=== PATIENT | male | born 1970 | race Caucasian/White ===

== ENCOUNTER 2024-04-29 21:44 | Emergency (ER) | payer BC, SELFPAY ==
[2024-04-29 22:19] VITALS: BP 155/78; PULSE 83; RESP 17; TEMP 36.8; O2SAT 97; BMI 33.2
--- NOTE | 2024-04-29 22:26 | PD.EDWOUND ---
ED Wound/Laceration-RME/HPI General Chief Complaint: Wound/Laceration Stated Complaint: lac to abd Time Seen by Provider: 04/29/24 22:26 Source: patient Arrival date/time: 04/29/24 21:44 53-year-old male presents emergency department complaining of small laceration to right lower quadrant of the abdomen after laying on bed and forgetting there was his knife on the bed which resulted in small superficial laceration. Patient unsure if he is up-to-date with tetanus vaccine. Mode of arrival: ambulatory Limitations: no limitations Related Data Previous Rx's ?Medication ?Instructions ?Recorded cephalexin 500 mg capsule 500 mg PO BID 5 days #10 caps 04/29/24 Allergies Allergy/AdvReac Type Severity Reaction Status Date / Time No Known Allergies Allergy Unverified 01/21/23 09:13 Review of Systems Review of Systems Systems Reviewed: All systems reviewed, normal except as documented Constitutional Constitutional: Reports system reviewed and no additional complaints, except as documented, Denies body ache(s), Denies chills and Denies fever(s) Eyes Eyes: Reports system reviewed and no additional complaints, except as documented and Denies change in vision ENT Ears, Nose, Mouth, and Throat: Reports system reviewed and no additional complaints, except as documented, Denies disequilibrium, Denies dizziness, Denies sore throat and Denies vertigo Cardiovascular Cardiovascular: Reports system reviewed and no additional complaints, except as documented, Denies chest pain and Denies dyspnea Respiratory Respiratory: Reports system reviewed and no additional complaints, except as documented, Denies chest congestion, Denies cough and Denies dyspnea Gastrointestinal Gastrointestinal: Reports system reviewed and no additional complaints, except as documented, Denies abdominal pain, Denies nausea and Denies vomiting Musculoskeletal Musculoskeletal: Reports system reviewed and no additional complaints, except as documented, Denies abnormal gait and Denies arthralgias Integumentary/Breasts Skin/Breast: Reports system reviewed and no additional complaints, except as documented, Denies erythema, Denies rash and Reports wounds Neurologic Neurologic: Reports system reviewed and no additional complaints, except as documented, Denies abnormal gait, Denies disequilibrium, Denies dizziness and Denies vertigo Past Medical History Social History SMOKING STATUS: Never smoker ED Exam General Limitations: Present no limitations General appearance: Present alert and in no apparent distress Head Head exam: Present atraumatic Eye Eye exam: Present normal appearance, PERRL and EOMI ENT ENT exam: Present normal exam, normal oropharynx and mucous membranes moist Neck Neck exam: Present normal inspection, full ROM and trachea midline Chest Chest inspection: Present normal inspection and symmetric chest wall rise Respiratory Respiratory exam: Present normal lung sounds bilaterally Cardiovascular Cardiovascular exam: Present regular rate, normal rhythm and normal heart sounds Abdominal Exam Abdominal exam: Present soft and normal bowel sounds Extremities Exam Extremities exam: Present normal inspection and full ROM Back Exam Back exam: Present normal inspection and full ROM Neurological Exam Neurological exam: Present alert, oriented X3 and CN II-XII intact Psychiatric Psychiatric exam: Present normal affect and normal mood Skin Skin exam: Present warm and dry Expanded Skin Exam Type of lesion: Present laceration Distribution: Present abdomen Description: Present size (1 cm) Body image: 1. Superficial 1 cm laceration Course Quality Measures none Orders Category Date Time Status Set Up Suture Tray STAT Care 04/29/24 22:26 Completed Wound Care [Wound Care] NOW Care 04/29/24 22:26 Completed Lidocaine 1% 20 ml [Xylocaine 1% 20 ML] Med 04/29/24 22:26 Discontinued 20 ml INFL X1 ONE Tet,Diphth,Pertuss(Acell)-Tdap [Boostrix Vacc] Med 04/29/24 22:26 Discontinued 0.5 ml IMI .ONCE ONE Vital Signs Vital signs: Vital Signs Temperature 98.2 F 04/29/24 22:19 Pulse Rate 83 04/29/24 22:19 Respiratory Rate 17 04/29/24 22:19 Blood Pressure 155/78 H 04/29/24 22:19 Pulse Oximetry (%) 97 04/29/24 22:19 Oxygen Delivery Method Room Air 04/29/24 22:19 97% room air within normal limits Procedures -ED Laceration Laceration 1: Site: other (Right lower abdomen) Size (cm): 1 Description: linear Depth: simple, single layer Local Anesthetic: lidocaine 1% Amount of anesthesia used (mL): 0.5 Pre-repair: wound explored and irrigated extensively Skin layer closed with: nylon Size (cm): 5-0 Number of sutures: 2 Technique: simple, interrupted Wound / Laceration MDM Narrative MDM Narrative:: 53-year-old male presents emergency department complaining of small laceration to right lower quadrant of the abdomen after laying on bed and forgetting there was his knife on the bed which resulted in small superficial laceration. Patient unsure if he is up-to-date with tetanus vaccine. Laceration to right lower abdomen approximately 1 cm in size and superficial with scant amount of bleeding. Abdominal exam soft with no obvious underlying hematoma. Laceration irrigated with normal saline. Laceration approximated with 2 simple interrupted sutures using 5-0 Ethilon. 1% lidocaine was used as a local anesthetic. Patient tolerated well. Patient appears nontoxic and hemodynamically stable. Patient discharged home with short duration oral antibiotics for infection prophylaxis. Patient instructed to return to the emergency room or primary care provider's office in 7 days for suture removal. Instructed to return to emergency department for any worsening symptoms or as needed. Patient data External records reviewed:: None Clinical information provided by:: patient Social determinants that could affect healthcare access:: none Patient has the following chronic illnesses:: Not applicable How is presenting disease/condition affected by chronic disease/condition?: no chronic disease Evaluation data The following diagnostics were reviewed and interpreted by me:: other (specify) (Not applicable) Lab and/or radiology exams considered but not ordered:: Not applicable Interpretation Summary: Not applicable Medications / Prescriptions Medications or Prescriptions considered but not ordered:: Ordered Medication administrations:: Medication Administration History Discontinued Medications Diphtheria/Tetanus/Acell Pertussis (Diphth,Pertuss(Acell),Tet Vac 0.5 Ml Vial) 0.5 ml IMi .ONCE ONE Stop: 04/29/24 22:27 Last Admin: 04/29/24 23:01 Dose: 0.5 ml Documented By: Lidocaine HCl (Lidocaine Hcl 1% 20 Ml Vial) 20 ml INFL X1 ONE Stop: 04/29/24 22:27 Last Admin: 04/29/24 23:02 Dose: 20 ml Documented By: Given Consultations Consultation(s) initiated? (list below): No Diagnosis Wound Differential Diagnosis: laceration Most likely diagnosis given after review of the tests above:: Laceration Admission Indicated Admission indicated?: not indicated Admission Request Was there a request for admission?: No Disposition Plan Disposition Plan: Discharge Discharge Attestation Discharge Attestation: The patient and all family members were given an opportunity to ask questions and understood the discharge instructions. Discharge instructions specifically effects, indications for sooner follow up or return to the emergency department, and the expected course of current diagnosis. Patient condition: Stable Discharge Plan Plan Patient Disposition: HOME (Self Care) Disposition Comment: Stable Prescriptions/Referrals Prescriptions/Med Rec: New cephalexin 500 mg capsule 500 mg PO BID 5 Days Qty: 10 0RF Referrals: Anjel Aleman MD [Primary Care Provider] - In 1 week Problem List Clinical Impression: Laceration Patient/Caregiver Discharge Instructions Discharge Activity: activity as tolerated Additional Instructions: Take medication as prescribed. Return to emergency department or primary care provider's office in 7 days for suture removal. May wash laceration with warm water and soap. Keep clean and dry. Return to emergency department for any signs of infection or worsening symptoms. Print Language: Tongan Stand Alone Forms: [facility] Award Info., Work/School Release, Patient Portal Info Letter Vaccines Vaccines Given During Stay: Modesta KILGORE Attestation MD Attestation The patient was seen by the midlevel practitioner. I, the co-signing physician, was present during the entire ER visit. While I did not physically examine the patient, I was available for consultation as needed.
[2024-04-29] MEDS: DIPHTH,PERTUSS(ACELL),TET VAC 0.5 ML VIAL IMi (23:01)
[2024-04-29] MEDS: LIDOCAINE HCL 1% 20 ML VIAL INFL (23:02)
== END 2024-04-30 00:26 | disposition home or self-care (01) ==
PROVIDERS: Emergency Provider Emergency Medicine; PCP Family Medicine
DX: S31.113A Laceration without foreign body of abdominal wall, right lower quadrant without penetration into peritoneal cavity, initial encounter (principal); W26.0XXA Contact with knife, initial encounter; Y93.89 Activity, other specified; Z23 Encounter for immunization
CPT/HCPCS: 12001; 90471; 90715; 99283; J3490